=== PATIENT | male | born 1970 | race Two or more races ===

== ENCOUNTER 2017-05-18 20:01 | Emergency (ER) | payer MEDICAID ==
[~2017-05-18] VITALS: Ht 167.6 cm; Wt 77.1 kg
[2017-05-18 20:15] VITALS: BP 123/75
[2017-05-18] MEDS ORDERED: HYDROcodone-ACET 5/325MG TAB PO ONE (22:15)
== END 2017-05-18 22:38 | disposition home or self-care (01) ==
LOC: ER 20:05
DX: S40.011A Contusion of right shoulder, initial encounter (principal); V13.4XXA Pedal cycle driver injured in collision with car, pick-up truck or van in traffic accident, initial encounter; Y93.89 Activity, other specified; Y92.89 Other specified places as the place of occurrence of the external cause; Y99.8 Other external cause status
CPT/HCPCS: 73030